=== PATIENT | male | born 1980 | race Caucasian/White ===

== ENCOUNTER 2021-09-22 21:20 | Emergency (ER) | payer OTHER ==
[~2021-09-22] VITALS: Ht 180.3 cm; Wt 83.0 kg
--- NOTE | 2021-09-22 21:42 | NUR ---
BIBFIANCE TO ER BED 10. AAOX4. NOT IN RESP DISTRESS, BREATHING EVEN AND UNLABORED. AMBULATORY. CAME IN FOR L SIDE CP X 1000 SINCE THEN AIN HAS BEEN CONSTANLY PRESSURE WITH SENSATION OF PRESSURE AND BURNING PER PT. PT REPORTS PAIN RADITING TO HHIS LEFT ARM. RATES THE PAIN 4/10. EKG DONE AND PLACED ON MONITOR. MD WAS AT THE BEDSIDE FOR EVAL.
--- NOTE | 2021-09-22 21:47 | NUR ---
[facility]FA #18G S/L BLOOD COLLECTED AND SENT TO LAB
[2021-09-22 21:51] LABS: BASOPHILS # (AUTO) 0.1 K/uL (0.0-0.2); BASOPHILS % (AUTO) 0.7 % (0.0-2.0); EOSINOPHILS % (AUTO) 1.7 % (0.0-6.0); HEMATOCRIT 43 % (39-51); HEMOGLOBIN 14.6 g/dL (13.5-17.5); LYMPHOCYTES # (AUTO) 2.6 K/uL (0.8-4.8); LYMPHOCYTES % (AUTO) 33.1 % (20.0-44.0); MEAN CORPUSCULAR HGB CONC 34 g/dl (31.0-36.0); MEAN CORPUSCULAR VOLUME 89 fL (80-96); MONOCYTES # (AUTO) 0.6 K/uL (0.1-1.30); MONOCYTES % (AUTO) 7.1 % (2.0-12.0); NEUTROPHILS # (AUTO) 4.6 K/uL (1.8-8.9); NEUTROPHILS % (AUTO) 57.4 % (43.0-81.0); PLATELET COUNT (AUTO) 237 K/uL (150-450); RED BLOOD CELL COUNT(AUTO) 4.84 MIL/uL (4.5-6.0); WHITE BLOOD COUNT (AUTO) 7.9 K/uL (4.3-11.0)
--- NOTE | 2021-09-22 21:53 | NUR ---
PEPPER PICKER AT PT'S BEDSIDE
[2021-09-22 22:04] LABS: CALCIUM, SERUM 9.1 mg/dL (8.5-10.1); CARBON DIOXIDE 31 mmol/L (21-32); CHLORIDE 101 mmol/L (98-107); CREATININE 1.1 mg/dL (0.6-1.3); GLUCOSE 92 mg/dL (74-106); POTASSIUM 3.8 mmol/L (3.5-5.1); SODIUM SERUM 138 mmol/L (136-145); UREA NITROGEN, BLOOD 24 mg/dL (7-18)
--- NOTE | 2021-09-22 23:08 | NUR ---
Patient discharged to home in stable condition. Written and verbal after care instructions given. Patient verbalizes understanding of instruction. pt ambulatory with a steady gait
[2021-09-22 23:10] VITALS: BP 116/77
== END 2021-09-22 23:10 | disposition home or self-care (01) ==
LOC: ER 21:24
DX: R07.89 Other chest pain (principal); E78.5 Hyperlipidemia, unspecified
CPT/HCPCS: 36415; 71045-TC; 80048-TC; 84484-TC; 85025-TC